=== PATIENT | female | born 1970 | race Caucasian/White ===

== ENCOUNTER → 2023-09-06 08:12 | Outpatient (REF) | payer BC, SELFPAY | LOC: WDC 08:12 | PROVIDERS: ATTENDING PHYSICIAN Obstetrics & Gynecology Gynecology; FAMILY PHYSICIAN Family Medicine | DX: Z12.31 Encounter for screening mammogram for malignant neoplasm of breast (principal) | CPT/HCPCS: 77063; 77067 ==

== ENCOUNTER → 2023-09-26 11:30 | Outpatient (REF) | payer BC, SELFPAY | LOC: RAD 11:30 | PROVIDERS: ATTENDING PHYSICIAN Obstetrics & Gynecology Gynecology; FAMILY PHYSICIAN Family Medicine | DX: D25.9 Leiomyoma of uterus, unspecified (principal) | CPT/HCPCS: 76830; 76856 ==